=== PATIENT | male | born 1965 | race Caucasian/White ===

== ENCOUNTER 2022-03-19 09:11 | Emergency (ER) | payer OTHER ==
[~2022-03-19] VITALS: Ht 180.3 cm; Wt 92.1 kg
[~2022-03-19 09:11] MED LIST: ALBUTEROL0.63 MG/3; AVELOX ABC PAC400 MG; CEFTRIAXONE1 G/VIAL; CELESTONE0.6 MG/5 M; ENDOCET 5/325 T1 TAB; EPINEPHRINE0.1 MG/ML; Glucophage PO; Hyzaar 100-12.5 Tablet PO; LEVAQUIN750 MG PO; NORVASC 10 MG TAB PO; PERCOCET 10-3251 TAB; PREDNISOLONE5 GM; PROAIR HFA8.5 GM; Singulair 10MG PO; THEO-DUR PO; THEOPHYLLINE400 MG; TRISPEC-SF LIQ120 ML; XOPENEX0.63 MG/3 IH; ZOCOR40 MG PO; ZYNCOF 20-400120 ML PO
[2022-03-19] MEDS ORDERED: LOSARTAN-HCTZ1 EAC1 PO (09:38)
[2022-03-19] MEDS ORDERED: AMLODIPINE-OLM1 EAC3 PO (09:39)
[2022-03-19] MEDS ORDERED: LOREEV XR2 MG PO (09:39)
[2022-03-19] MEDS ORDERED: METFORMIN HCL500 M3 PO (09:39)
== END 2022-03-19 13:21 | disposition home or self-care (01) ==
LOC: ER 09:11
DX: B34.9 Viral infection, unspecified (principal); R53.81 Other malaise; I10 Essential (primary) hypertension; E11.9 Type 2 diabetes mellitus without complications; Z20.822 Contact with and (suspected) exposure to COVID-19

== ENCOUNTER 2024-06-14 10:34 | Outpatient (CLI) | payer OTHER ==
[~2024-06-14 10:34] MED LIST changes: +AMLODIPINE-OLM1 EAC3 PO; +LOREEV XR2 MG PO; +LOSARTAN-HCTZ1 EAC1 PO; +METFORMIN HCL500 M3 PO
== END 2024-06-14 10:42 | disposition home or self-care (01) ==
LOC: MRI 10:34
PROVIDERS: ATTEND Neurological Surgery
DX: M54.2 Cervicalgia (principal)
CPT/HCPCS: 72141

== ENCOUNTER 2025-07-19 16:28 | Outpatient (CLI) | payer OTHER | END 2025-07-19 16:38 | disposition home or self-care (01) | LOC: RAD 16:28 | DX: M54.2 Cervicalgia (principal); Z98.1 Arthrodesis status; M25.511 Pain in right shoulder; M25.512 Pain in left shoulder; M96.1 Postlaminectomy syndrome, not elsewhere classified ==